=== PATIENT | female | born 1970 | race African-American/Black ===

== ENCOUNTER 2021-11-02 06:52 | Emergency (ER) | payer BC, OTHER | END 2021-11-02 07:33 | disposition home or self-care (01) | LOC: ERS 06:52 | DX: J30.2 Other seasonal allergic rhinitis (principal) | CPT/HCPCS: 99283 ==

== ENCOUNTER 2023-09-09 22:26 | Emergency (ER) | payer BC | END 2023-09-09 23:08 | disposition home or self-care (01) | LOC: ERS 22:26 | DX: S46.911A Strain of unspecified muscle, fascia and tendon at shoulder and upper arm level, right arm, initial encounter (principal); I10 Essential (primary) hypertension; X50.0XXA Overexertion from strenuous movement or load, initial encounter; Y99.0 Civilian activity done for income or pay ==

== ENCOUNTER 2024-10-03 05:52 | Emergency (ER) | payer BC ==
[2024-10-03] MEDS ORDERED: Ibuprofen 800 MG TAB ONE (06:30)
[2024-10-03] MEDS ORDERED: Pseudoephedrine HCl 30 MG TAB PO SCH (06:45)
== END 2024-10-03 06:58 | disposition home or self-care (01) ==
LOC: EEVIPCON 05:52 → ERS 05:52
DX: B34.9 Viral infection, unspecified (principal); H61.23 Impacted cerumen, bilateral; I10 Essential (primary) hypertension; Z79.899 Other long term (current) drug therapy
CPT/HCPCS: 87081; 87428; 87430; 99283